=== PATIENT | male | born 1995 | race African-American/Black ===

== ENCOUNTER 2018-04-25 20:40 | Emergency (ER) | payer MEDICAID ==
[~2018-04-25] VITALS: Ht 190.5 cm; Wt 85.0 kg
[2018-04-25 20:55] VITALS: BP 156/83
[2018-04-25] MEDS ORDERED: AZITHROMYCIN 500 MG TABLET PO ONE (21:30)
[2018-04-25] MEDS ORDERED: CEFTRIAXONE 250 MG IM ONE (21:30)
[2018-04-25] MEDS ORDERED: AZITHROMYCIN 500 MG TABLET ONE (21:35)
[2018-04-25] MEDS ORDERED: CEFTRIAXONE 250 MG ONE (21:35)
== END 2018-04-25 21:56 | disposition home or self-care (01) ==
LOC: ED 21:50
DX: A60.01 Herpesviral infection of penis (principal)
CPT/HCPCS: 96372; 99283; J0696

== ENCOUNTER 2018-05-30 11:03 | Emergency (ER) | payer MEDICAID ==
[~2018-05-30] VITALS: Ht 190.5 cm; Wt 95.0 kg
[2018-05-30 11:14] VITALS: BP 174/85
== END 2018-05-30 12:23 | disposition home or self-care (01) ==
LOC: ED 12:13
DX: A60.01 Herpesviral infection of penis (principal); I88.1 Chronic lymphadenitis, except mesenteric; A63.0 Anogenital (venereal) warts; F17.200 Nicotine dependence, unspecified, uncomplicated
CPT/HCPCS: 99283